=== PATIENT | male | born 1955 | race Caucasian/White ===

== ENCOUNTER 2018-11-11 07:44 | Emergency (ER) | payer OTHER, SELFPAY ==
[2018-11-11 07:47] VITALS: BP 168/99; PULSE 72; RESP 16; TEMP 36.4; O2SAT 97
[2018-11-11 08:02] LABS: Bilirubin Small (Negative); Blood Large (Negative); Clarity Cloudy (Clear); Glucose Negative (Negative); Ketones Negative (Negative); Leukocyte Esterase Negative (Negative); Nitrite Positive (Negative)
--- NOTE | 2018-11-11 08:07 | W.ED.GENAD ---
Discharge Plan Disposition Patient Disposition: HOME Condition: Improving Discharge Details Chief Complaint: Urinary Clinical Impression: Cystitis Primary Care Provider: Marlene,Local ED Provider: Sekou Estrella Home Meds and New Rx's Prescriptions: New ciprofloxacin HCl 250 mg tablet 250 mg PO BID 7 Days Qty: 14 RF: 0 Continued lisinopril 10 mg Tablet 10 mg PO DAILY RF: 0 aspirin [Aspirin Childrens] 81 mg Tablet,Chewable 81 mg PO DAILY RF: 0 Discharge Instructions Instructions: Urinary Tract Infection in Men (ED) Additional Instructions: Return for inability to void, the development of fever, back pain, or any other acute concern. Take antibiotics as prescribed. Follow-up with your regular doctor and urology upon your return home to [place]. Return to the emergency department for any acute concerns while in this area. Medical Decision Making Professionally 63-year-old male presents with 2 days of mild dysuria which she describes as some urgency associated with blood-tinged urine. Similar to previous episode of prostatitis in the past. He takes an CM inhibitor and 81 mg of aspirin daily. Is not had a fever, back pain, systemic signs or symptoms of illness. He is well-appearing, slightly hypertensive but otherwise with normal vital signs. His exam is unremarkable. Urinalysis reveals evidence of infection with positive nitrates and numerous cells. Consistent with acute cystitis. Discussed with him that floroquinolone is the best choice; discussed side effects and indication for re-eval. Discussed with him possibility of urinary retention. He will follow-up with primary care and urology at his home in [place], [place] when he returns next week. Return to the ER for any concerns in the interim. HPI General Mode of arrival: ambulatory. Date/Time Provider Initiated Documentation: 11/11/18 07:57. Limitations to Documentation: no limitations. Information obtained by: patient. History of Present Illness 63 year old M presents to the emergency department with the chief complaint of Dysuria x2 days, described as moderate, Quality is described as dull, and is localized to the pelvis. Patient reports no radiation. Patient started experiencing this day(s) and it has been intermittent. No relieving factors improve symptom(s), No exacerbating factors reported . Patient notes denies fever/chills. Patient did receive the following treatments prior to arrival, none Related Data Home Medications Medication Instructions Recorded Confirmed aspirin [Aspirin Childrens] 81 mg PO DAILY 11/11/18 11/11/18 ciprofloxacin HCl 250 mg PO BID 7 Days #14 tab 11/11/18 lisinopril 10 mg PO DAILY 11/11/18 11/11/18 Previous Rx's Medication Instructions Recorded ciprofloxacin HCl 250 mg PO BID 7 Days #14 tab 11/11/18 Allergies Allergy/AdvReac Type Severity Reaction Status Date / Time No Known Allergies Allergy Unverified 11/11/18 07:52 General Stated Complaint: Urinary SUZANNA: 3 Review of Systems Review of Systems Bloody urine. No fever, back pain, malaise. 6 systems reviewed and otherwise negative. [facility] Medical History HTN (hypertension) (Chronic) Social History Smoking/Tobacco Use Status: Never Alcohol Intake: current Alcohol Intake frequency: a few times a week Alcohol type: beer Drug use: Never Substance use type: does not use Do you feel safe at home: Yes Do you feel safe in your relationship?: Yes Exam Narrative Exam Narrative: GEN: awake, alert, oriented 3. Pleasant, well groomed, interactive. HEAD: Normocephalic, atraumatic ENT: Mucous membranes moist, oropharynx unremarkable, External ear exam unremarkable EYES: PERRL, EOMI NECK: Full ROM, no SHEREE, no menigismus CHEST/RESP: Nontender, clear to auscultation bilateral, no wheeze/rhonchi/rales CARDIOVASCULAR: RRR, no murmur, rub lisa. 2+ Rad pulse bilateral ABDOMEN: Soft, nontender, no mass. +Bowel sounds EXT: Full ROM, no edema, no rash Neuro: Grossly normal neurologic exam, conversant, interactive. Psych: Speech fluent, thoughts congruent, affect normal Course Vital Signs Temperature 36.4 C L 11/11/18 07:47 Pulse 72 11/11/18 07:47 Respiratory Rate 16 11/11/18 07:47 Blood Pressure 168/99 H 11/11/18 07:47 Pulse Oximetry 97 11/11/18 07:47 Temperature 36.4 C L 11/11/18 07:47 Temperature Source Skin 11/11/18 07:47 Pulse 72 11/11/18 07:47 Respiratory Rate 16 11/11/18 07:47 Respiratory Effort Non-Labored 11/11/18 07:50 Blood Pressure 168/99 H 11/11/18 07:47 Blood Pressure Position Sitting 11/11/18 07:47 Pulse Oximetry 97 11/11/18 07:47 Pain Level 0 11/11/18 07:56
[2018-11-11 08:13] LABS: C & S Indicated? Yes; RBC >50 (0-2)
== END 2018-11-11 08:31 | disposition home or self-care (01) ==
PROVIDERS: Emergency Provider Emergency Medicine; PCP Internal Medicine
DX: N30.01 Acute cystitis with hematuria (principal); I10 Essential (primary) hypertension
CPT/HCPCS: 99283; 81003; 81015; 87086